=== PATIENT | male | born 1995 | race Caucasian/White ===

== ENCOUNTER 2017-12-04 19:54 | Emergency (ER) | payer OTHER ==
[2017-12-04 20:17] VITALS: BP 125/72
--- NOTE | 2017-12-04 20:18 | ED Physician Documentation ---
Hand Injury - HISTORIAN Historian: patient - HPI Stated Complaint: injury left hand Chief Complaint: Hand Injury Severity: moderate Context: fall Location of Injury: L hand Modifying Factors: pain on movement Further Comments: yes (22 year old male patient presents with left hand pain. States he fell and hit hand on the ground.) - ROS CONST: no problems GI/: denies: problems urinating, nausea, vomiting, other NEURO: none CVS/RESP: none LNMP: denies: , post-menopausal EYES/ENT: none MS/SKIN/LYMPH: none - PAST HX Past History: Rt handed Allergies/Adverse Reactions: Allergies Allergy/AdvReac Type Severity Reaction Status Date / Time No Known Allergies Allergy Verified 12/04/17 20:40 Home Medications: Ambulatory Orders Medication Instructions Recorded NK [NK] 12/04/17 - SOCIAL HX Smoking History: cigarettes - FAMILY HX Family History: denies: none - REVIEWED ASSESSMENTS Nursing Assessment Reviewed: Yes Vitals Reviewed: Yes Progress - Progress Progress: OCL splint applied by nursing; cap refill prompt Reviewed discharge instructions with patient; questions answered; strongly encouraged Follow up - explained fracture was displaced and would need closed reduction. Verbalized understanding. ED Results Lab/Radiology - Radiology Radiology Impressions: 3 views of the left hand Clinical history: Left hand pain Findings: There is a fracture of the 4th metacarpal with minimal displacement measuring 2- 3 mm. No other fractures identified. Impression: 4th metacarpal fracture Electronically signed on Dec 04, 2017 8:34:01 PM CDT by: Tree Hutton - Orders Orders: ED Orders Category Date Time Status Ulnar Gutter Splint 1T Care 12/04/17 20:15 Ordered HAND 3 VIEWS OR MORE [RAD] Stat Exams 12/04/17 Ordered Hand Injury Physical Exam - Exam General Appearance: moderate distress Hand: no evidence of FB, soft tissue tenderness (left hand 4th and 5th metacarpal), bony tenderness (left hand 4th and 5th metacarpal), swelling (left hand), limited ROM (left), pain (left) Wrist: normal inspection, non-tender, no evidence of injury, normal ROM Neuro: sensation nml, motor nml Vascular: no vascular compromise Forearm/Elbow/Arm: uninjured above wrist Skin: normal color, warm/dry, NR, INT, PAL, DR Resp/CVS: no resp. distress, reg. rate & rhythm Discharge Clincal Impression: Closed fracture of 4th metacarpal Qualifiers: Encounter type: initial encounter Metacarpal location: shaft Fracture alignment : displaced Laterality: left Qualified Code(s): S62.325A - Displaced fracture of shaft of fourth metacarpal bone, left hand, initial encounter for closed fracture Additional Instructions: No weight bearing or lifting with left hand Rest Ice Elevation Call orthopedics for a follow up appointment in the next 2-3 days. Take your disc and report to the appointment. Do not get your OCL splint wet. Place extremity in a trash bag to shower. Return to the ER right away if: You cannot wiggle your fingers your fingers are pale or blue The splint is loose, damaged, gets wet or smells bad Condition: Stable Disposition: 01 HOME, SELF-CARE Decision to Admit: NO Decision Time: 20:40
[2017-12-04] MEDS ORDERED: ACETAMINOPHEN WITH CODEINE 300MG/30MG TABLET PO ONE (20:43)
--- NOTE | 2017-12-04 23:28 | Diagnostic Imaging Report ---
[facility] [id number] [facility].[address] [id number] Report Submission Date: Dec 04, 2017 8:34:01 PM CDT Patient Study Name: DARIAN HAYDEN Date: Dec 04, 2017 7:56:17 PM CDT Modality Type: DX Gender: M Description: UPPER EXTREMITY : 94 Institution: [facility] Physician: SULLY ROMERO (HEAD NECK SURGEON) - ER 3 views of the left hand Clinical history: Left hand pain Findings: There is a fracture of the 4th metacarpal with minimal displacement measuring 2- 3 mm. No other fractures identified. Impression: 4th metacarpal fracture Electronically signed on Dec 04, 2017 8:34:01 PM CDT by: Tree CARTWRIGHT
== END 2017-12-04 20:55 | disposition home or self-care (01) ==
LOC: ED 19:54
DX: S62.325A Displaced fracture of shaft of fourth metacarpal bone, left hand, initial encounter for closed fracture (principal); W19.XXXA Unspecified fall, initial encounter; Y92.9 Unspecified place or not applicable; Y93.9 Activity, unspecified; Y99.9 Unspecified external cause status
CPT/HCPCS: 73130

== ENCOUNTER 2018-08-12 12:01 | Emergency (ER) | payer SELFPAY ==
[2018-08-12 12:19] VITALS: BP 116/67
--- NOTE | 2018-08-12 12:35 | ED Physician Documentation ---
General Adult - HISTORIAN Historian: patient - HPI Stated Complaint: Possible STD infection Chief Complaint: General Adult Onset: days ago Timing: still present Severity: moderate Further Comments: yes (Pt with little PMHx came to ER because his girlfriend called him to say that she tested pos for GC/Chlamydia. Pt has had no sx. Pt states he has only one partner.) - ROS CONST: no problems EYES/ENT: none CVS/RESP: none GI/: none MS/SKIN/LYMPH: none - PAST HX Past History: none Other History: none Surgeries/Procedures: none Allergies/Adverse Reactions: Allergies Allergy/AdvReac Type Severity Reaction Status Date / Time No Known Allergies Allergy Verified 08/12/18 12:19 Home Medications: Ambulatory Orders Medication Instructions Recorded NK 12/04/17 - SOCIAL HX Smoking History: cigarettes - FAMILY HX Family History: No - VITAL SIGNS Vital Signs: Vital Signs Temp Pulse Resp BP Pulse Ox 97.8 F 66 14 116/67 99 08/12/18 12:02 08/12/18 12:02 08/12/18 12:02 08/12/18 12:02 08/12/18 12:02 - REVIEWED ASSESSMENTS Nursing Assessment Reviewed: Yes Vitals Reviewed: Yes Progress - Progress Progress: Azithromycin 1 gm po in ER Ceftriaxone 1 gm IM in ER (with lidocaine) ED Results Lab/Radiology - Orders Orders: ED Orders Category Date Time Status Azithromycin [Zithromax] Med 08/12/18 12:30 Once 1,000 mg PO NOW ONE Lidocaine 1% 5ml [Xylocaine] Med 08/12/18 12:33 Once 50 mg IJ NOW ONE cefTRIAXone SODIUM [Rocephin] Med 08/12/18 12:32 Once 500 mg IM NOW ONE General Adult Physical Exam - PHYSICAL EXAM GENERAL APPEARANCE: no distress EENT: pharynx normal NECK: normal inspection, supple RESPIRATORY: no resp distress, chest non-tender, breath sounds normal CVS: reg rate & rhythm, heart sounds normal ABDOMEN: soft, no organomegaly, normal bowel sounds BACK: normal inspection, no CVA tenderness SKIN: warm/dry, normal color EXTREMITIES: non-tender, normal range of motion, no evidence of injury NEURO: oriented X3, CN's nml as tested, motor nml Discharge Clincal Impression: STD exposure Referrals: Primary Doctor,No [Primary Care Provider] - Condition: Stable Disposition: 01 HOME, SELF-CARE Decision to Admit: NO Decision Time: 12:40
[2018-08-12] MEDS: Lidocaine 1% 5ml 10 MG/ML VIAL IJ ONE (12:45)
[2018-08-12] MEDS: AZITHROMYCIN 250 MG TABLET PO ONE (12:45)
== END 2018-08-12 12:55 | disposition home or self-care (01) ==
LOC: ED 12:01
DX: Z20.2 Contact with and (suspected) exposure to infections with a predominantly sexual mode of transmission (principal)
CPT/HCPCS: 96372; 99282; 99283; J0696